=== PATIENT | female | born 1940 | race Caucasian/White ===

== ENCOUNTER → 2018-11-25 | Outpatient (CLI) | payer MEDICARE ==
--- NOTE | 2018-11-25 11:52 | CRLMY ---
INDICATION: bilateral screening mammogram asymptomatic 78 year old been obtained using full-field digital technique. These mammographic images were interpreted with the benefit of computer-aided detection. COMPARISON FILM: 11/14/17, 11/06/16, 10/24/15, 10/18/14. FINDINGS: There are scattered fibroglandular densities. There are no masses or calcifications that are suspicious for malignancy. IMPRESSION: There is no radiographic evidence for malignancy. ASSESSMENT: BI-RADS Category 2: Benign RECOMMENDATION: Routine screening mammogram in 1 year. A lay language report of this examination will be provided to the patient. Breast Tomosynthesis was used in this interpretation. [email or web address] Dictated by: Geovany Gudino MD @ 11/25/2018 11:50:37 (Electronically Signed)
== END ==
LOC: JP.MAM 07:49
PROVIDERS: ATTEND Family Medicine
DX: Z12.31 Encounter for screening mammogram for malignant neoplasm of breast (principal)
CPT/HCPCS: 77063; 77067